=== PATIENT | female | born 1975 | race Asian ===

== ENCOUNTER 2018-08-24 21:22 | Outpatient (CLI) | payer OTHER ==
[~2018-08-24] VITALS: Ht 165.1 cm; Wt 77.0 kg
== END 2018-08-24 21:56 | disposition home or self-care (01) ==
LOC: LDOP 21:22
PROVIDERS: ATTEND Student in an Organized Health Care Education/Training Program
DX: O36.8130 Decreased fetal movements, third trimester, not applicable or unspecified (principal); Z3A.28 28 weeks gestation of pregnancy
CPT/HCPCS: 59025; 99211; G0463

== ENCOUNTER 2018-11-10 06:10 | Inpatient (IN) | payer OTHER ==
[~2018-11-10] VITALS: Ht 167.6 cm; Wt 80.0 kg
[2018-11-10] MEDS ORDERED: OXYTOCIN 30U/ 0.9% NaCL 500ML 500 ML IV ONE (06:45)
[2018-11-10] MEDS ORDERED: OXYTOCIN 30U/ 0.9% NaCL 500ML 500 ML IV PRN (06:45)
[2018-11-10] MEDS ORDERED: D5%-LACTATED RINGERS 1,000 ML IV SCH (06:45)
[2018-11-10] MEDS ORDERED: OXYTOCIN 30U/ 0.9% NaCL 500ML 500 ML ONE ×2 (06:47→20:13)
[2018-11-10] MEDS: LACTATED RINGERS 1,000 ML IV SCH ×3 (06:51→14:41)
[2018-11-10] MEDS ORDERED: CALCIUM CARBONATE 500 MG TAB.CHEW PO PRN ×2 (07:00→21:30)
[2018-11-10] MEDS ORDERED: ONDANSETRON 2MG/ML, 2ML IVPush PRN (07:00)
[2018-11-10] MEDS ORDERED: FENTANYL PF 100 MCG/2ML IV PRN (07:00)
[2018-11-10] MEDS ORDERED: FENTANYL PF 100 MCG/2ML IVPush PRN (07:00)
[2018-11-10 07:13] LABS: BASOPHILS # (AUTO) 0.01 x10^3/uL (0-0.1); BASOPHILS % (AUTO) 0 % (0-1); EOSINOPHILS # (AUTO) 0.05 x10^3/uL (0-0.4); EOSINOPHILS % (AUTO) 1 % (1-7); LYMPHOCYTES # (AUTO) 1.69 x10^3/uL (1-3.4); LYMPHOCYTES % (AUTO) 28 % (22-44); MD NO; MEAN CORPUSCULAR HEMOGLOBIN 33.7 pg (27.0-34.8); MEAN CORPUSCULAR HGB CONC 33.6 g/dL (32.4-35.8); MEAN CORPUSCULAR VOLUME 100.3 fL (80-100); MEAN PLATELET VOLUME 8.1 fL (7.4-10.4); MONOCYTES # (AUTO) 0.46 x10^3/uL (0.2-0.8); MONOCYTES % (AUTO) 8 % (2-9); NEUTROPHILS # (AUTO) 3.76 x10^3/uL (1.8-6.8); NEUTROPHILS % (AUTO) 63 % (42-75); PLATELET COUNT 226 x10^3/uL (130-400); RED BLOOD COUNT 3.66 x10^6/uL (3.82-5.3); RED CELL DISTRIBUTION WIDTH 13.4 % (9.6-15.2)
[2018-11-10 07:15] VITALS: BP 124/83
[2018-11-10 07:33] VITALS: BP 124/83
[2018-11-10] MEDS ORDERED: NEWBORN KIT ONE (07:33)
[2018-11-10] MEDS ORDERED: FENTANYL/BUPIV./NS/PF 250 ML EPIDCONT SCH ×3 (10:00→10:28)
[2018-11-10] MEDS ORDERED: LACTATED RINGERS 1,000 ML IV SCH ×2 (10:07→10:28)
[2018-11-10] MEDS ORDERED: LACTATED RINGERS 1,000 ML IVBOLUS PRN ×2 (10:30)
[2018-11-10] MEDS ORDERED: FENTANYL PF 500 MCG, BUPIVACAINE/PF 0.5%, 30ML 62.5 ML in SODIUM CHLORIDE 0.9% 177.5 ML EPIDCONT SCH (10:30)
[2018-11-10] MEDS ORDERED: EPHEDRINE 50 MG/ML, 1ML IVPush PRN ×2 (10:30)
[2018-11-10] MEDS ORDERED: NALOXONE 0.4 MG/ML, 1ML IVPush PRN ×2 (10:30)
[2018-11-10] MEDS ORDERED: LIDOCAINE/MPF 2%-EPI 1:200K, 20 ML ONE (10:39)
[2018-11-10] MEDS ORDERED: LIDOCAINE/PF 1.5%-EPI 1:200K, 30ML ONE (10:42)
[2018-11-10] MEDS ORDERED: BUPIVACAINE 0.25% ONE (10:43)
[2018-11-10] MEDS: OXYTOCIN 30U/ 0.9% NaCL 500ML 500 ML IV SCH (21:14)
[2018-11-10] MEDS ORDERED: OXYcodone/APAP 5/325MG TABLET PO PRN (21:30)
[2018-11-10] MEDS ORDERED: ACETAMINOPHEN 325 MG TABLET PO PRN (21:30)
[2018-11-10] MEDS ORDERED: IBUPROFEN 600 MG TABLET PO PRN (21:30)
[2018-11-10] MEDS ORDERED: ONDANSETRON 2MG/ML, 2ML IV PRN (21:30)
[2018-11-10 22:00] VITALS: BP 113/72
[2018-11-11 02:30] VITALS: BP 106/69
[2018-11-11 04:37] LABS: BASOPHILS % (AUTO) 0 % (0-1); EOSINOPHILS % (AUTO) 0 % (1-7); LYMPHOCYTES # (AUTO) 1.47 x10^3/uL (1-3.4); LYMPHOCYTES % (AUTO) 9 % (22-44); MD NO; MEAN CORPUSCULAR HEMOGLOBIN 35.1 pg (27.0-34.8); MEAN CORPUSCULAR HGB CONC 34.3 g/dL (32.4-35.8); MEAN CORPUSCULAR VOLUME 102.2 fL (80-100); MEAN PLATELET VOLUME 8.5 fL (7.4-10.4); MONOCYTES # (AUTO) 0.78 x10^3/uL (0.2-0.8); MONOCYTES % (AUTO) 5 % (2-9); NEUTROPHILS # (AUTO) 13.96 x10^3/uL (1.8-6.8); NEUTROPHILS % (AUTO) 86 % (42-75); PLATELET COUNT 199 x10^3/uL (130-400); RED BLOOD COUNT 3.44 x10^6/uL (3.82-5.3); RED CELL DISTRIBUTION WIDTH 13.2 % (9.6-15.2)
[2018-11-11] MEDS: OXYTOCIN 30U/ 0.9% NaCL 500ML 500 ML IV SCH ×2 (07:14→17:14)
[2018-11-11 07:20] VITALS: BP 123/84
[2018-11-11] MEDS: DOCUSATE 100 MG CAPSULE PO PRN (07:53)
[2018-11-11] MEDS: PRENATAL VIT/IRON/FA 1 EACH TABLET PO SCH (07:53)
[2018-11-11 12:05] VITALS: BP 132/87
[2018-11-11 16:30] VITALS: BP 113/71
[2018-11-11 19:35] VITALS: BP 119/58
[2018-11-12] MEDS: DOCUSATE 100 MG CAPSULE PO PRN (00:35)
[2018-11-12] MEDS: OXYTOCIN 30U/ 0.9% NaCL 500ML 500 ML IV SCH ×2 (03:14→13:14)
[2018-11-12 07:00] VITALS: BP 116/82
[2018-11-12] MEDS: PRENATAL VIT/IRON/FA 1 EACH TABLET PO SCH (09:00)
[2018-11-12] MEDS ORDERED: DOCU-131 PO (12:21)
[2018-11-12] MEDS ORDERED: IBUP-1222 PO (12:21)
== END 2018-11-12 15:15 | disposition home or self-care (01) | DRG 807 ==
LOC: LDIP 06:10 → 2NW 21:56
PROVIDERS: ADMIT Student in an Organized Health Care Education/Training Program; ATTEND Student in an Organized Health Care Education/Training Program
PROC: 10907ZC Drainage of Amniotic Fluid, Therapeutic from Products of Conception, Via Natural or Artificial Opening (ICD-10-PCS; principal; 2018-11-10)
PROC: 10E0XZZ Delivery of Products of Conception, External Approach (ICD-10-PCS; 2018-11-10)
PROC: 3E033VJ Introduction of Other Hormone into Peripheral Vein, Percutaneous Approach (ICD-10-PCS; 2018-11-10)
PROC: 3E0R3BZ Introduction of Anesthetic Agent into Spinal Canal, Percutaneous Approach (ICD-10-PCS; 2018-11-10)
PROC: 00HU33Z Insertion of Infusion Device into Spinal Canal, Percutaneous Approach (ICD-10-PCS; 2018-11-10)
DX: O43.123 Velamentous insertion of umbilical cord, third trimester (principal); Z37.0 Single live birth; Z3A.39 39 weeks gestation of pregnancy
CPT/HCPCS: 36415; 85025; 86850; 86900; G0378; J3010; J3490; J2590; J7050; J7120